=== PATIENT | female | born 1965 | race Caucasian/White ===

== ENCOUNTER 2019-10-16 11:36 | Emergency (ER) | payer BC ==
[2019-10-16] MEDS ORDERED: 0.9 % SODIUM CHLORIDE 1,000 ML BAG IV ONE (11:55)
[2019-10-16] MEDS ORDERED: ONDANSETRON HCL IV 4 MG/2 ML VIAL IVP ONE (11:55)
[2019-10-16] MEDS ORDERED: MAGNESIUM HYDROXIDE/AL HYDROX 30 ML, LIDOCAINE VISC 2% 15ML 15 ML PO ONE ×2 (11:56)
--- NOTE | 2019-10-16 11:57 | Emergency Department Record ---
History of Present Illness - General Chief Complaint: Abdominal Pain Stated Complaint: ABD PAIN Time Seen by Provider: 10/16/19 11:48 Source: Patient Mode of Arrival: Ambulatory Limitations: No limitations - History of Present Illness Initial Comments: The patient is here due to upper abdominal pain for just over 24 hours. The pain is sharp and stabbing and is located in the epigastric area and radiates to the back. She has no nausea or vomiting with it and also denies any lower abdominal or pelvic pain. The patient states she has had this same pain last year when she had a stone stuck in her bile duct which caused jaundice. The patient at that time was seen at [facility] and transferred to [facility] for treatment. She also states she has had her GB removed a few years ago at [facility] and Gastric Bypass many years ago there also. MD Complaint: Abdominal pain Onset/Timin Radiation: Epigastric Severity: Moderate Severity scale (1-10): 6 Quality: Sharp Improves With: Nothing Worsens With: Nothing Associated Symptoms: Denies other symptoms - Related Data Home Medications Medication Instructions Recorded Confirmed Last Taken Lisinopril/Hydrochlorothiazide 1 tab PO DAILY 10/16/19 10/16/19 10/16/19 [Lisinopril-Hctz 20-12.5 mg Tab] Previous Rx's Medication Instructions Recorded Sucralfate [Carafate] 1 gm PO QID #28 tablet 10/16/19 Allergies Allergy/AdvReac Type Severity Reaction Status Date / Time No Known Drug Allergies Allergy Verified 10/16/19 11:49 Travel/Exposure Screening - Travel/Exposure Within Last 30 Days Have you traveled within the last 30 days?: No - Additonal Travel/Exposure Details Have you been exposed to anyone with a communicable illness?: No Review of Systems Constitutional: Denies: Chills, Fever Eyes: Denies: Eye discharge ENT: Denies: Congestion Respiratory: Denies: Cough, Dyspnea Cardiovascular: Denies: Chest pain Endocrine: Denies: Fatigue Gastrointestinal: Reports: Abdominal pain. Denies: Diarrhea, Nausea, Vomiting Genitourinary: Denies: Dysuria Musculoskeletal: Denies: Arthralgia Past Medical History - SOCIAL HISTORY Smoking Status: Never smoker Alcohol Use: None Drug Use: None - RESPIRATORY Hx Respiratory Disorders: No - CARDIOVASCULAR Hx Cardio Disorders: Yes Hx Edema: Yes Hx Hypertension: Yes - NEURO Hx Neuro Disorders: No - GI Hx GI Disorders: Yes Hx Abdominal Pain: Yes Hx Hepatitis/Jaundice: Yes - Hx Genitourinary Disorders: No - ENDOCRINE Hx Endocrine Disorders: No - MUSCULOSKELETAL Hx Musculoskeletal Disorders: No - PSYCH Hx Psych Problems: No - HEMATOLOGY/ONCOLOGY Hx Hematology/Oncology Disorders: No Family Medical History Any Significant Family History?: No Physical Exam - General General Appearance: Alert, Oriented x3, Cooperative, No acute distress - Head Head exam: Atraumatic, Normocephalic - Eye Eye exam: Normal appearance - ENT Throat exam: Normal inspection. negative: Tonsillar erythema, Tonsillar exudate - Neck Neck exam: Normal inspection, Full ROM. negative: Tenderness - Respiratory Respiratory exam: Normal lung sounds bilaterally. negative: Respiratory distress - Cardiovascular Cardiovascular Exam: Regular rate, Normal rhythm, Normal heart sounds - GI/Abdominal GI/Abdominal exam: Soft, Tenderness (There is mild epigastric tenderness to palpation.). negative: Guarding, Rebound, Rigid - Extremities Extremities exam: Normal inspection, Full ROM, Normal capillary refill. negative: Tenderness - Neurological Neurological exam: Alert. negative: Motor sensory deficit Course Vital Signs 10/16/19 11:45 Temperature 98.0 F Pulse Rate 74 Respiratory 20 Rate Blood Pressure 147/97 Pulse Ox 99 - Reevaluation(s) Reevaluation #1: The patient is doing a lot better at this time. She states the AP now is resolved. On exam her abdomen is soft and nontender in all 4 quads. 10/16/19 13:19 Reevaluation #2: The patient is doing better at this time. Her pain is almost completely gone. I did discuss the fact other than a mildly elevated Lipase I cannot find anything else to attribute the pain to. The patient does have pneumobilia on CT but she has had that in the past and her records indicate she has had a sphincterotomy. I strongly doubt any infectious etiology due to the fact the patient has no fever, elevated WBC, and normal liver enzymes. The patient does have an appointment at 8am with her doctor. I did recommend recheck in the ER but she is planning on starting there first and going from there. 10/16/19 16:00 Medical Decision Making - Data Complexity MDM Data: Labs Ordered and/or Reviewed, X-Ray Ordered and/or Reviewed - Lab Data Result diagrams: 10/16/19 12:00 10/16/19 12:00 - Radiology Data Radiology results: Report reviewed (Abd CT: Neg except for Pneumobilia (The patient has had a sphincterotomy and has had it in the past on prior CT's)) Disposition Disposition: Discharge Clinical Impression: Abdominal pain Qualifiers: Abdominal location: unspecified location Qualified Code(s): R10.9 - Unspecified abdominal pain Disposition: Home, Self-Care Condition: (2) Stable Instructions: Abdominal Pain (ED) Additional Instructions: Please eat a very bland diet and take the Carafate as directed. Please see your doctor in the morning to be rechecked and to have your Lipase redrawn. Return to the ER for any worsening symptoms, pain, fever, or vomiting. Prescriptions: Sucralfate [Carafate] 1 gm PO QID #28 tablet Forms: Patient Portal Access Time of Disposition: 16:05 Quality - Quality Measures Quality Measures: N/A - Blood Pressure Screening View Details: Yes Does Patient Have Any of the Following: No Blood Pressure Classification: Hypertensive Reading Systolic Measurement: 147 Diastolic Measurement: 97 Screening for High Blood Pressure: < First Hypertensive BP, F/U Documented > [G8950] First Hypertensive Follow-up Interventions: Referral to alternative/primary care provider.
[2019-10-16] MEDS ORDERED: ACETAMINOPHEN 1,000 MG/100 ML BTL IVPB ONE (12:00)
[2019-10-16 12:14] LABS: ABSOLUTE NEUTROPHIL COUNT 4.66; BASO % 0.3 % (0-6); HEMATOCRIT 43.1 % (35.0-47.0); HEMOGLOBIN 14.4 gm/dl (11.6-16.0); LYMPH % 25.2 % (16-45); MEAN CORPUSCULAR HEMOGLOBIN 29.8 pg (27-33); MEAN CORPUSCULAR HGB CONC 33.4 g/dl (32-36); MEAN PLATELET VOLUME 10.2 fl (7.4-10.4); MONO % 10.5 % (0-9); PLATELET COUNT 355 K/uL (130-400); RED BLOOD COUNT 4.84 M/uL (3.80-5.40); RED CELL DISTRIBUTION WIDTH 13.1 % (11.5-14.5); WHITE BLOOD COUNT W/O DIFF 7.5 K/uL (4.2-12.2)
[2019-10-16 12:16] LABS: URINE APPEARANCE SL CLOUDY; URINE BILIRUBIN NEGATIVE (NEGATIVE); URINE BLOOD NEGATIVE (NEGATIVE); URINE COLOR YELLOW; URINE GLUCOSE (UA) NEGATIVE (NEGATIVE); URINE KETONE NEGATIVE (NEGATIVE); URINE LEUKOCYTE ESTERASE SMALL (NEGATIVE); URINE NITRITE NEGATIVE (NEGATIVE); URINE PROTEIN NEGATIVE (NEGATIVE); URINE UROBILINOGEN 0.2 E.U./dL (0.20 - 1.00)
[2019-10-16 12:22] LABS: URINE BACTERIA 4+; URINE EPITHELIAL CELLS >50 (FEW); URINE RBC NONE SEEN (NONE SEEN); URINE WBC 0 - 2 (0-2/hpf)
[2019-10-16 12:25] LABS: BLOOD UREA NITROGEN 13 mg/dL (6-20); CREATININE 0.8 mg/dL (0.5-0.9); EST GLOMERULAR FILTRATION RATE > 60 mL/min
[2019-10-16 12:26] LABS: LIPASE 109 U/L (13-60); TOTAL PROTEIN 7.7 g/dL (6.6-8.7)
[2019-10-16] MEDS ORDERED: SUCRALFATE 1 G/10 ML UD PO ONE (12:26)
[2019-10-16 12:28] LABS: GLUCOSE,RANDOM 131 mg/dL (74-109)
[2019-10-16 12:30] LABS: ALBUMIN 4.2 g/dL (4.0-5.0); ALT/SGPT 23 U/L (<33); AST/SGOT 20 U/L (10.0-35.0); BILIRUBIN,DIRECT < 0.2 mg/dL (0-0.3)
[2019-10-16 12:31] LABS: ALKALINE PHOSPHATASE 81 U/L (35-104)
--- NOTE | 2019-10-16 15:02 | CT SCAN REPORT ---
EXAMINATION: CT Abdomen and Pelvis with IV Contrast EXAM DATE: 10/16/2019 2:31 PM TECHNIQUE: CT imaging of the abdomen and pelvis was performed with intravenous contrast. Coronal and sagittal images were reconstructed. IV Contrast: The amount and type of contrast are recorded in the medical record. INDICATION: upper AP COMPARISON: None ENCOUNTER: Not applicable CT ABDOMEN AND PELVIS FINDINGS: Lung Bases: Discoid atelectasis or scarring right base. Hepatobiliary: The liver has a normal size with a smooth surface. The hepatic and portal veins appear patent. Cholecystectomy. Pneumobilia. Pancreas: The pancreas is normal. Spleen: The spleen is not enlarged. Adrenals: The adrenal glands are normal. Kidneys, Ureters, & Bladder: Both kidneys have a normal size and there is no hydronephrosis. Both ur eters have a normal caliber and the urinary bladder is unremarkable. Gastrointestinal: Gastric bypass. Wall thickening distal esophagus. Appendix not demonstrated. Probab le nondistention descending and rectosigmoid colon. Sigmoid diverticulosis. No diverticulitis Reproductive Organs: Unremarkable Lymphatic System: There is no adenopathy within the abdomen or pelvis. Vasculature: Normal caliber abdominal aorta. Peritoneum: No free fluid, free air, or inflammation Abdominal Wall & Musculoskeletal: No suspicious bone lesions. Small fat-containing umbilical hernia IMPRESSION: 1. Discoid atelectasis or scarring right base 2. Cholecystectomy 3. Pneumobilia 4. Gastric bypass 5. Wall thickening distal esophagus 6. Probable nondistention descending to rectosigmoid colon. Sigmoid diverticulosis. 7. Small fat-containing umbilical hernia Dictated by: Devang Romero MD on 10/16/2019 2:48 PM. .
[2019-10-16] MEDS ORDERED: MORPHINE SULFATE 5 MG/ML VIAL IVP ONE (15:26)
== END 2019-10-16 16:10 | disposition home or self-care (01) ==
LOC: ER 11:36
DX: R10.13 Epigastric pain (principal); R74.8 Abnormal levels of other serum enzymes; I10 Essential (primary) hypertension; Z98.84 Bariatric surgery status
CPT/HCPCS: 99284 ×2; 96365; 96375; 83690; 85025; 80076; 80048; 81001; 74177; Q9967; J2405; J7030